=== PATIENT | male | born 1975 | race Two or more races ===

== ENCOUNTER 2016-05-27 11:04 | Emergency (ER) | payer BC ==
[~2016-05-27] VITALS: Ht 165.1 cm; Wt 74.4 kg
--- NOTE | 2016-05-27 11:56 | PHYS DOC ---
Adult General Chief Complaint Chief Complaint: LACERATION/AVULSION HPI HPI Patient is a 40 year old male presents with complaint of a laceration to his right index finger that occurred at approximately 10 AM this morning while he was cleaning glass. Patient denies glass shattering and striking him in the face. He denies any additional injuries or concerns at this time. Review of Systems Review of Systems Constitutional: Denies fever or chills [] Eyes: Denies change in visual acuity, redness, or eye pain [] HENT: Denies nasal congestion or sore throat [] Respiratory: Denies cough or shortness of breath [] Cardiovascular: No additional information not addressed in HPI [] GI: Denies abdominal pain, nausea, vomiting, bloody stools or diarrhea [] : Denies dysuria or hematuria [] Musculoskeletal: Denies back pain or joint pain [] Integument: Denies rash or skin lesions [] Neurologic: Denies headache, focal weakness or sensory changes [] Endocrine: Denies polyuria or polydipsia [] Current Medications Current Medications Current Medications Medications (Trade) Dose Ordered Sig/Dedra Start Time Stop Time Status Last Admin Dose Admin Diphtheria/ Tetanus/Acell Pertussis (Boostrix) 0.5 ml ONCE ONCE 05/27/16 12:15 05/27/16 12:16 DC 05/27/16 12:32 0.5 ML Lidocaine/Sodium Bicarbonate (Buffered Lidocaine 1%) 20 ml 1X ONCE 05/27/16 12:15 05/27/16 12:16 DC 05/27/16 12:30 20 ML Allergies Allergies Allergies Coded Allergies Type Severity Reaction Last Updated Verified No Known Drug Allergies 05/27/16 No Physical Exam Physical Exam Constitutional: Well developed, well nourished, no acute distress, non-toxic appearance. [] HENT: Normocephalic, atraumatic, bilateral external ears normal, oropharynx moist, no oral exudates, nose normal. [] Eyes: PERRLA, EOMI, conjunctiva normal, no discharge. [] Neck: Normal range of motion, no tenderness, supple, no stridor. [] Cardiovascular:Heart rate regular rhythm, no murmur [] Lungs & Thorax: Bilateral breath sounds clear to auscultation [] Abdomen: Bowel sounds normal, soft, no tenderness, no masses, no pulsatile masses. [] Skin: Warm, dry, no erythema, no rash. [] Back: No tenderness, no CVA tenderness. [] Extremities: Approximate 2.5 cm laceration to the proximal phalanx of the right index finger just distal to the MCPJ. The laceration does not cross the dorsal midline. Flexor and extensor function is preserved at both the PIPJ and DIPJ. Fingers neurovascularly intact with capillary refill less than 2 seconds. Neurologic: Alert and oriented X 3, normal motor function, normal sensory function, no focal deficits noted. [] Psychologic: Affect normal, judgement normal, mood normal. [] Current Patient Data Vital Signs Vital Signs Date Time Temp Pulse Resp B/P Pulse Ox O2 Delivery O2 Flow Rate FiO2 05/27/16 11:59 98.2 71 14 98 Room Air 98.2 EKG EKG [] Radiology/Procedures Radiology/Procedures Procedure note: 2.5 similar laceration to the base of patient's right index finger. The laceration extends into the subcutaneous cutaneous fat. The laceration does not cross the midline over the extensor tendons. No extensor tendon involvement with the laceration. There is no joint space involvement. The wound was anesthetized with buffered 1% lidocaine. Wound was cleansed with Betadine solution and rinsed with copious amounts of normal saline. Wound was explored for foreign bodies. No foreign bodies were found. Wound margins were approximated utilizing 4-0 nylon in a single interrupted fashion of a singular closure for total of 4 stitches. Wound was dressed with gauze and bandaged with Coban. Patient tolerated the procedure well. Patient received Boostrix and left deltoid. I delivered the IM injection myself. Course & Med Decision Making Course & Med Decision Making Pertinent Labs and Imaging studies reviewed. (See chart for details) [] Dragon Disclaimer Dragon Disclaimer This electronic medical record was generated, in whole or in part, using a voice recognition dictation system. Departure Departure Impression: Primary Impression: Laceration Disposition: 01 HOME, SELF-CARE Condition: IMPROVED Referrals: NO PCP (PCP) Patient Instructions: Diphtheria Toxoid; Tetanus Toxoid Adsorbed, DT, Td, Laceration Care, Adult, [id number] Additional Instructions: 1. Keep the laceration site clean and dry. You are able to wash your hands; just don't soak your hands in water. 2. Stitches need to be removed in 7-10 days. 3. Review the discharge instructions provided for self-care and reasons to return to the emergency room. 4. Use the pamphlet provided for assistance in finding a primary care doctor's office in which you may follow up for wound evaluation and suture removal. HAILEY HUNT May 27, 2016 11:56
[2016-05-27 11:59] VITALS: BP 139/98
[2016-05-27] MEDS ORDERED: LIDOCAINE 1% / SOD BICARB 8.4% 20 ML VIAL. IJ ONE (12:15)
[2016-05-27] MEDS ORDERED: DIPHTH,PERTUSS(ACELL),TET TOX 0.5 ML DISP.SYRIN. VAX IM ONE (12:15)
== END 2016-05-27 12:32 | disposition home or self-care (01) ==
LOC: ER 11:04
DX: S61.210A Laceration without foreign body of right index finger without damage to nail, initial encounter (principal); X58.XXXA Exposure to other specified factors, initial encounter; Y93.89 Activity, other specified; Y92.89 Other specified places as the place of occurrence of the external cause; Y99.8 Other external cause status
CPT/HCPCS: 12001; 90471; 90715; 99283-25